=== PATIENT | female | born 1990 | race Caucasian/White ===

== ENCOUNTER 2017-11-16 05:45 | Inpatient (IN) | payer OTHER ==
[2017-11-16 07:46] LABS: Hematocrit 37.2 % (30.3-42.9); Hemoglobin 13.1 gm/dl (10.1-14.3); Mean Corpuscular HGB Conc 35 % (30-34); Mean Corpuscular Hemoglobin 30 pg (28-32); Mean Corpuscular Volume 85 fl (79-97); Platelet Count 201 K/mm3 (140-440); Red Blood Count 4.37 M/mm3 (3.65-5.03); Red Cell Distribution Width 13.4 % (13.2-15.2)
[2017-11-16] MEDS ORDERED: BRETHINE SUB-Q PRN (07:51)
[2017-11-16] MEDS ORDERED: POLYCILLIN/NS 2 GM/100 ML 2 GM/100 ML BAG IV ONE (07:51)
[2017-11-16] MEDS ORDERED: MINERAL OIL PO PRN (07:51)
[2017-11-16] MEDS ORDERED: XYLOCAINE 2% INFILTRATI ONE ×2 (07:51→10:33)
[2017-11-16] MEDS ORDERED: SUBLIMAZE IV PRN (07:51)
[2017-11-16] MEDS ORDERED: BRETHINE IVP PRN (07:51)
--- NOTE | 2017-11-16 07:53 | History and Physical Report ---
History of Present Illness Date of examination: 11/16/17 Date of admission: 11/16/17 Chief complaint: contractions History of present illness: Pt rpesents in active labor EDC Confirmation: 11/19/2017 Gestational Age: 29 6/7 weeks Past History : 4 Term Births: 1 Premature Births: 1 Living Children: 2 Para: 2 Mult. Births: 0 Prev : 0 Prev. attempt? 0 Aborta: 1 Elect. Ab: 0 Spont. Ab: 0 Ectopics: 0 # 1 Delivery date: 08/03/2013 Weeks Gestation: 36 labor: yes Delivery type: Hours of labor: 16 Anesthesia type: epidural Delivery location: [place] Sex: Male weight: 6-7 Name: Georgette # 2 Delivery date: 04/2014 Weeks Gestation: 7 Delivery type: SAB Comments: No D&C # 3 Delivery date: 03/17/2015 Weeks Gestation: 40 Delivery type: Hours of labor: 15 Anesthesia type: epidural Delivery location: [place] Infant Sex: Male weight: 9-6 Name: Vanessaerinnnorm Past Medical History: Negative Past Medical History Past Surgical History: Negative Past Surgical History Family History Summary: Other family member - Has No Family History of Ovarvian Cancer - Entered On: 09/09 Other family member - Has No Family History of Colon Cancer - Entered On: 2017 Other family member - Has No Family History of Breast Cancer - Entered On: 2017 Other family member - Has Family History of Thyroid Disease - Entered On: 2017 Other family member - Has Family History of Hypertension - Entered On: 09/09/2017 Social History: Patient is single Past Medical History Surgery (Non-yield 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 Past Surgical History Uterine Anomaly: negative Social Hx: Patient is single Genetic History Congenital Heart Defect: Mom: no Dad: no Mika Disease: Mom: no Dad: no Thalassemia Mom: no Dad: no Neural Tube Defect Mom: no Dad: no Down's Syndrome Mom: no Dad: no Matt-Sachs Mom: no Dad: no Sickle Cell Disease/Trait Mom: no Dad: no Hemophilia Mom: no Dad: no Muscular Dystrophy Mom: no Dad: no Cystic Fibrosis Mom: no Dad: no [place] Chorea Mom: no Dad: no Mental Retardation Mom: no Dad: no Fragile X Mom: no Dad: no Other Genetic/Chromosomal Disorder Mom: no Dad: no Child w/other defect Mom: no Dad: no Active Medications (reviewed today): FORMULA 27-1 MG ORAL TABLET ( VIT-FE FUMARATE-FA) 1 po q day as directed Current Allergies (reviewed today): No known allergies Past History Past Medical History: no pertinent history, other (see hpi) Past Surgical History: other (see hpi) FIELD SPEC History: other (see hpi) Social history: no significant social history - Obstetrical History Expected Date of Delivery: 11/19/17 Actual Gestation: 39 Week(s) 4 Day(s) : 4 Para: 2 Spontaneous Abortions: 1 Number of Living Children: 2 Medications and Allergies Allergies Allergy/AdvReac Type Severity Reaction Status Date / Time No Known Allergies Allergy Unverified 11/16/17 06:17 Active Meds: Active Medications Lactated Ringer's (Lactated Ringers) 1,000 mls @ 125 mls/hr IV DIRECT TRACEE Oxytocin/Sodium Chloride (Pitocin/Ns 20 Unit/1000ml Drip) 20 units in 1,000 mls @ 0 mls/hr IV DIRECT TRACEE Review of Systems All systems: negative - Vital Signs Vital signs: Vital Signs Pulse BP 96 H 115/70 11/16/17 06:20 11/16/17 06:20 Temp Pulse Resp BP Pulse Ox 87 119/69 11/16/17 07:42 11/16/17 07:42 - Physical Exam Cardiovascular: Normal S1, Normal S2 Lungs: Positive: Clear to auscultation, Normal air movement Abdomen: Positive: normal appearance, soft. Negative: distention, tenderness, guarding Genitourinary (Female): Positive: normal external genitalia, normal perenium. Negative: perineal/vulvar lesions - Obstetrical FHR: category 1 Results Result Diagrams: 11/16/17 07:20 Abnormal lab results 11/16/17 Range/Units 07:20 WBC 13.6 H (4.5-11.0) K/mm3 MCHC 35 H (30-34) % All other labs normal. Assessment and Plan - Patient Problems (1) 39 weeks gestation of Current Visit: Yes Status: Acute (2) Active labor Current Visit: Yes Status: Acute Plan to address problem: -anticipate sve -loading dose of antibx to be given (3) Positive GBS test Current Visit: Yes Status: Acute Plan to address problem: -will initial dose but pt labor is progressing w/o augmentation, so may not get second dose -will follow protocol accordingly (4) Rh negative status during Current Visit: Yes Status: Acute Qualifiers: Trimester: third trimester Qualified Code(s): O09.893 - Supervision of other high risk pregnancies, third trimester; Z67.91 - Unspecified blood type, Rh negative Plan to address problem: -Rhogam pp if indicated
[2017-11-16] MEDS ORDERED: LACTATED RINGERS 1,000 ML IV SCH ×2 (08:00)
[2017-11-16] MEDS ORDERED: PITOCin/NS 30 UNIT/500ML 30 UNITS/500 ML BAG IV SCH ×2 (08:00)
[2017-11-16] MEDS ORDERED: PITOCin/NS 20 UNIT/1000ML DRIP 20 UNITS/1,000 ML BAG IV SCH ×2 (08:00)
[2017-11-16] MEDS ORDERED: NARCAN 2 MG/2 ML IV PRN (08:51)
[2017-11-16] MEDS ORDERED: fentaNYL-BUPIV 2 MCG/ML-0.125% 200 MCG/100 ML BAG EPIDURAL SCH (09:00)
[2017-11-16] MEDS ORDERED: LANSINOH TP PRN (10:58)
[2017-11-16] MEDS ORDERED: DULCOLAX PR PRN (10:58)
[2017-11-16] MEDS ORDERED: MILK OF MAGNESIA PO PRN (10:58)
[2017-11-16] MEDS ORDERED: TYLENOL PO PRN (10:58)
[2017-11-16] MEDS ORDERED: BENADRYL PO PRN (10:58)
[2017-11-16] MEDS ORDERED: TUCKS PAD TP PRN (10:58)
[2017-11-16] MEDS ORDERED: ZOFRAN IV PRN (10:58)
[2017-11-16] MEDS ORDERED: PHENERGAN PR PRN (10:58)
[2017-11-16] MEDS ORDERED: PHENERGAN PO PRN (10:58)
[2017-11-16] MEDS ORDERED: SODIUM CHLORIDE FLUSH SYRINGE 10 ML IV NR (11:00)
--- NOTE | 2017-11-16 11:06 | Procedure Note ---
OB Delivery Note - Delivery Date of Delivery: 11/16/17 Surgeon: SARA WHITTEN Estimated blood loss: 300cc - Vaginal Delivery presentation: vertex Delivery position: OA Intrapartum events: none Delivery induction: none Delivery monitor: external uterine, internal FHT Route of delivery: Delivery placenta: spontaneous (intact) Delivery cord: nuchal cord (times one cord clamped x2 and cut) Episiotomy: none Delivery laceration: 1st degree (left labial), 2nd degree (perineal-repaired in usual fashion with 3-0 vicryl) Delivery repair: vicryl (3-0) Anesthesia: epidural Delivery comments: Delivery as above. Ant shoulder delivered w/o difficulty. Nuchal cord times one noted and clamped x 2 and easily reduced. [facility] taken to [facility] to waiting mother baby nurse. Cord blood collected. Placenta manually delivered w/ o difficulty. Perineal laceration noted and repaired in usual fashion. EBL 300ml. Mother and stable in ldr. - Infant A at 1 minute: 7 at 5 minutes: 9 Infant Gender: Female (8lbs 14oz)
[2017-11-16] MEDS ORDERED: AMPICILLIN/NS 1 GM/50 ML 1 GM/50 ML BAG IV SCH (11:51)
[2017-11-16] MEDS: MOTRIN PO SCH (18:13)
[2017-11-16] MEDS ORDERED: DERMOPLAST TP PRN (19:20)
[2017-11-17] MEDS: MOTRIN PO SCH ×3 (00:31→17:47)
[2017-11-17 00:40] LABS: Hemoglobin 12.4 gm/dl (10.1-14.3)
--- NOTE | 2017-11-17 08:39 | Progress Note ---
Assessment and Plan - Patient Problems (1) Spontaneous vaginal delivery Onset Date: ~11/17/17 Current Visit: Yes Status: Acute Plan to address problem: Pt resting No c/o voiced VSS FF below umb Lochia small Perineum intact H&H stable Doing well s/p P: d/c tomorrow GBS+ incomplete tx due to rapid delivery Subjective - Subjective Date of service: 11/17/17 Principal diagnosis: Day # 1 s/p vag delivery; GBS+ untreated Patient reports: appetite normal, voiding normally, pain well controlled, ambulating normally [place]: doing well Objective - Vital Signs Latest vital signs: Vital Signs Temp Pulse Resp BP BP Pulse Ox 11/17/17 01:31 18 11/17/17 00:31 18 11/17/17 00:06 98.4 F 76 14 110/62 11/16/17 21:05 98.5 F 93 H 16 96/53 98 11/16/17 15:50 98.6 F 100 H 18 104/47 98 11/16/17 13:00 98.7 F 98 H 16 101/65 98 11/16/17 11:58 93 H 102/54 11/16/17 11:53 85 101/55 11/16/17 11:48 82 99/59 11/16/17 11:43 92 H 103/51 11/16/17 11:38 83 107/55 11/16/17 11:33 83 107/54 11/16/17 11:28 76 118/57 11/16/17 11:23 81 111/56 11/16/17 11:18 82 107/53 11/16/17 11:13 85 110/51 11/16/17 11:08 89 115/54 11/16/17 11:03 91 H 121/54 11/16/17 10:58 91 H 122/58 11/16/17 10:53 100 H 119/58 11/16/17 10:48 127/56 11/16/17 10:43 97 H 113/54 11/16/17 10:39 100 H 111/59 11/16/17 10:34 141 H 161/81 11/16/17 10:29 96 H 132/55 94 11/16/17 10:26 105 H 132/60 11/16/17 10:24 111 H 85 11/16/17 10:20 122 H 140/73 11/16/17 10:19 109 H 100 11/16/17 10:18 102 H 78 L 11/16/17 10:14 118 H 118/60 100 11/16/17 10:12 96 H 110/62 11/16/17 10:10 93 H 111/57 11/16/17 10:09 96 H 100 11/16/17 10:08 98 H 112/57 11/16/17 10:06 91 H 105/51 11/16/17 10:04 83 111/54 99 11/16/17 10:02 83 105/55 11/16/17 10:00 86 112/60 11/16/17 09:59 103 H 99 11/16/17 09:58 83 112/59 11/16/17 09:55 139 H 113/65 11/16/17 09:54 97 H 99 11/16/17 09:53 103 H 109/56 11/16/17 09:51 99 H 108/59 11/16/17 09:50 94 H 106/59 11/16/17 09:49 90 100 11/16/17 09:48 103 H 110/57 11/16/17 09:46 102 H 99/51 11/16/17 09:44 86 103/53 98 11/16/17 09:42 101 H 107/56 11/16/17 09:40 83 108/57 11/16/17 09:39 97 H 100 11/16/17 09:38 98 H 109/56 11/16/17 09:35 84 106/56 11/16/17 09:34 98 H 104/58 99 11/16/17 09:32 96 H 107/55 11/16/17 09:30 101 H 110/57 11/16/17 09:29 94 H 100 11/16/17 09:28 109 H 108/51 11/16/17 09:26 83 110/56 11/16/17 09:24 93 H 104/53 97 11/16/17 09:22 85 108/55 11/16/17 09:20 92 H 105/58 11/16/17 09:19 114 H 99 11/16/17 09:16 102 H 111/55 11/16/17 09:14 100 H 123/64 99 11/16/17 09:09 97 H 134/67 98 11/16/17 09:04 101 H 98 11/16/17 08:59 97 H 98 11/16/17 08:58 100 H 130/60 92 11/16/17 08:44 84 121/72 Intake and Output 11/16/17 11/17/17 11/17/17 22:59 06:59 14:59 Intake Total 600 240 Output Total 900 Balance -300 240 Intake: Oral 360 Intake, Free Water 240 240 Output: Urine 900 Void 900 Other: Total, Intake Amount 360 Total, Output Amount 900 # Voids Void 1 1 - Exam Breasts: Present: normal Cardiovascular: Present: Regular rate Lungs: Present: Normal air movement Abdomen: Present: normal appearance, soft Uterus: Present: normal, firm, fundal height below umbilicus Extremities: Present: normal Deep Tendon Reflex Grade: Normal +2 Incision: Present: normal, dry, intact
[2017-11-17] MEDS ORDERED: PRENATAL VITAMIN PO SCH (10:00)
[2017-11-17] MEDS ORDERED: BOOSTRIX IM ONE (10:59)
[2017-11-18] MEDS: MOTRIN PO SCH ×3 (00:13→11:10)
--- NOTE | 2017-11-18 07:24 | Discharge Summary ---
Providers - Providers Date of Admission: 11/16/17 05:46 Date of discharge: 11/18/17 (pt desires d/c ) Attending physician: SARA WHITTEN Primary care physician: SARA WHITTEN Hospitalization Reason for admission: active labor Delivery: Episiotomy: none Laceration: none Incision: normal Other procedures: none complications: none Discharge diagnosis: IUP at term delivered Sax[place] baby: female Hospital course: uncomplicated vaginal delivery pt asking to be d/c VSS FF below umb Lochia small perineum intact Stable H&H Doing well s/p vag delivery P: d/c today with instructions RTO 4 weeks. Flag to scheduling to schedule tubal as per pt request. Condition at discharge: Good Disposition: DC-01 TO HOME OR SELFCARE - Discharge Diagnoses (1) Spontaneous vaginal delivery Status: Acute Comment: RTO 4 weeks PP care Plan - Provider Discharge Summary Activity: routine, no sex for 6 weeks, no heavy lifting 4 weeks, no strenuous exercise Additional instructions: [] Smoking cessation referral if applicable(refer to patient education folder for contact #) [] Refer to [facility] Booklet Call your doctor immediately for: * Fever > 100.5 * Heavy vaginal bleeding ( >1 pad per hour) * Severe persistent headache * Shortness of breath * Reddened, hot, painful area to leg or breast * Drainage or odor from incision. * Keep incision clean and dry at all times and follow doctor's instructions regarding bathing/showering - Follow up plan Follow up: SARA WHITTEN MD [Primary Care Provider] - 12/17/17 (Congratulations! Please call [phone] to schedule your visit in 4 weeks. Take medication as prescribed. Call with concerns.)
[2017-11-18 09:55] VITALS: BP 110/59
== END 2017-11-18 12:10 | disposition home or self-care (01) | DRG 775 ==
LOC: TRG 05:45 → LD 05:46 → TRG 05:55 → OB 12:36
PROVIDERS: ADMIT Obstetrics & Gynecology; ATTEND Obstetrics & Gynecology
PROC: 10E0XZZ Delivery of Products of Conception, External Approach (ICD-10-PCS; principal; 2017-11-16)
PROC: 0KQM0ZZ Repair Perineum Muscle, Open Approach (ICD-10-PCS; 2017-11-16)
PROC: 3E0R3BZ Introduction of Anesthetic Agent into Spinal Canal, Percutaneous Approach (ICD-10-PCS; 2017-11-16)
PROC: 00HU33Z Insertion of Infusion Device into Spinal Canal, Percutaneous Approach (ICD-10-PCS; 2017-11-16)
PROC: 30233S1 Transfusion of Nonautologous Globulin into Peripheral Vein, Percutaneous Approach (ICD-10-PCS; 2017-11-17)
DX: O99.824 Streptococcus B carrier state complicating childbirth (principal); O70.1 Second degree perineal laceration during delivery; O69.1XX0 Labor and delivery complicated by cord around neck, with compression, not applicable or unspecified; Z3A.39 39 weeks gestation of pregnancy; Z37.0 Single live birth; Z82.49 Family history of ischemic heart disease and other diseases of the circulatory system; O09.893 Supervision of other high risk pregnancies, third trimester
CPT/HCPCS: 36415; 85014; 85018; 85027; 85461; 86592; 86850; 86870; 86900; 86901; A6250; J0290; J2590; J2790; J7120

== ENCOUNTER 2018-01-06 09:00 | Day surgery (SDC) | payer OTHER ==
--- NOTE | 2018-01-05 19:25 | History and Physical Report ---
History of Present Illness Date of examination: 01/01/18 Chief complaint: Sterilization History of present illness: Past History : 4 Term Births: 2 Premature Births: 1 Living Children: 3 Para: 3 Mult. Births: 0 Prev : 0 Prev. attempt? 0 Aborta: 1 Elect. Ab: 0 Spont. Ab: 1 Ectopics: 0 # 1 Delivery date: 08/03/2013 Weeks Gestation: 36 labor: yes Delivery type: Hours of labor: 16 Anesthesia type: epidural Delivery location: [place] Infant Sex: Male weight: 6-7 Name: Georgette # 2 Delivery date: 04/2014 Weeks Gestation: 7 Delivery type: SAB Comments: No D&C # 3 Delivery date: 03/17/2015 Weeks Gestation: 40 Delivery type: Hours of labor: 15 Anesthesia type: epidural Delivery location: [place] Infant Sex: Male weight: 9-6 Name: Alf # 4 Delivery date: 11/16/2017 Weeks Gestation: 39.4 Delivery type: Vaginal Anesthesia type: epidural Delivery location: [facility] Sex: female weight: 8.88 Comments: none FISH PROCESSOR History Operations: Negative Past Surgical History Abnormal PAP: negative Uterine Anomaly: negative Infection History HIV Risk Eval: no Hx of STD: None Active Medications (reviewed today): HYDROCORTISONE 1 % RECTAL CREAM (HYDROCORTISONE) Apply to affected area 2 to 4 times daily. IBUPROFEN 600 MG ORAL TABLET (IBUPROFEN) 1 po q6hrs as directed prn OXYCODONE-ACETAMINOPHEN 5-325 MG ORAL TABLET (OXYCODONE-ACETAMINOPHEN) 1-2po q6h FORMULA 27-1 MG ORAL TABLET ( VIT-FE FUMARATE-FA) 1 po q day as directed Current Allergies (reviewed today): No known allergies Past Medical History: Reviewed history from 09/09/2017 and no changes required: Negative Past Medical History Past Surgical History: Reviewed history from 09/09/2017 and no changes required: Negative Past Surgical History Family History Summary: Other family member - Has No Family History of Uterine Cancer - Entered On: 01/05 Other family member - Has No Family History of Stomach Cancer - Entered On: 01/05 Other family member - Has No Family History of Spontaneous DVT-PE - Entered On: 01/05/2018 Other family member - Has No Family History of Small Bowel Cancer - Entered On: 01/05/2018 Other family member - Has No Family History of Pancreatic Cancer - Entered On: 01/05/2018 Other family member - Has No Family History of Kidney/Urinary Tract Cancer - Entered On: 01/05/2018 Other family member - Has No Family History of Brain Cancer - Entered On: 2017 Other family member - Has No Family History of Biliary Tract Cancer - Entered On : 01/05/2018 Social History: Reviewed history from 09/09/2017 and no changes required: Patient is single Smoking History: Patient has never smoked. Risk Factors: Smoked Tobacco Use: Never smoker PAP Smear History: Date of Last PAP Smear: 01/01/2018 Results: 04/2017 Previous Tobacco Use: Signed On - 12/15/2017 Smoked Tobacco Use: Never smoker Smokeless Tobacco Use: Never Counseled to quit/cut down: yes Drug use: no HIV high-risk behavior: no Previous Alcohol Use: Signed On - 12/15/2017 Alcohol use: no Exercise: no Seatbelt use: 100 % Dietary Counseling: pn yes PAP Smear History: Date of Last PAP Smear: 01/01/2018 Results: 04/2017 Review of Systems GI hemorrhoids Physical Exam Appearance: well developed, well nourished, no acute distress Other Exams Lungs: no rales, rhonchi, or wheezes Heart: S1, S2, no murmur, rub, or gallop Impression & Recommendations: Problem # 1: Sterilization counseling (ICD-V25.09) (MKJ70-Q86.09) Orders: Ofc Vst Est [id number] (CPT-[id number]) Risks of regret emphasized. Permanent and irreversible condition explained to patient. Pt verbalized understanding. Consent reviewed and signed. Pre- operative instructions sheets given. The risks and alternatives to this surgery were reviewed with the patient. Infection precautions reviewed, pt to call for any signs or symptoms of infection. Patient given ample opportunity to have all her questions answered before signing informed consent. Patient informed of possible bleeding. 1%failure rate emphasized She desires salpingectomy for sterilization. Consent reviewed and signed . Possible laparoscopy or laparotomy explained to patient. The risks and alternatives for this surgery were reviewed with the patient. She was informed of possible bleeding, infection, injury to bowel, bladder, ureters or other adjacent organs. The patient was instructed/informed the following: The normal length of hospital stay for this procedure. Nothing to eat or drink after midnight the evening prior to surgery. Clear liquids the day before surgery. Fleets enema the day prior to surgery. Pre-op instruction sheets given. Wound care instructions given. Infection precautions reviewed, patient to call for any signs or symptoms of infection. The usual discomforts associated with this procedure were detailed. Proper use of pain medicines was reviewed. Patient was given ample opportunity to have all her questions answered before signing informed consent. . Medications Added to Medication List This Visit: 1) Hydrocortisone 1 % Rectal Cream (Hydrocortisone) .... Apply to affected area 2 to 4 times daily. 2) Ibuprofen 600 Mg Oral Tablet (Ibuprofen) .... 1 po q6hrs as directed prn 3) Oxycodone-acetaminophen 5-325 Mg Oral Tablet (Oxycodone-acetaminophen) .... 1-2po q6h Prescriptions: HYDROCORTISONE 1 % RECTAL CREAM (HYDROCORTISONE) Apply to affected area 2 to 4 times daily. #30[Gram] x 0 Entered and Authorized by: Conchis Shaikh MD Method used: Electronically to [facility]* (retail) [address] [place] [address] RxID: [id number] IBUPROFEN 600 MG ORAL TABLET (IBUPROFEN) 1 po q6hrs as directed prn #30 x 1 Entered and Authorized by: Conchis Shaikh MD Method used: Print then Give to Patient RxID: [id number] OXYCODONE-ACETAMINOPHEN 5-325 MG ORAL TABLET (OXYCODONE-ACETAMINOPHEN) 1-2po q6h #10 Tablet x 0 Entered and Authorized by: Conchis Shaikh MD Method used: Print then Give to Patient RxID: [id number] Medications and Allergies Allergies Allergy/AdvReac Type Severity Reaction Status Date / Time No Known Allergies Allergy Unverified 01/05/18 09:15 Home Medications Medication Instructions Recorded Confirmed Last Taken Type No Known Home Medications [No 01/05/18 01/05/18 Unknown History Reported Home Medications] Active Meds: Active Medications Cefazolin Sodium (Ancef/Sterile Water 2 Gm/20 Ml) 2 gm in 20 mls @ 80 mls/hr IV PREOP NR; Protocol Assessment and Plan - Patient Problems (1) Sterilization Status: Acute
[~2018-01-06 09:00] MED LIST: ANCEF/STERILE WATER 2 GM/20 ML 2 GM/20 ML SYRINGE IV NR; MARCAINE 0.5% INFILTRATI ONE
[2018-01-06] MEDS ORDERED: NACL BACTERIOSTATIC INFILTRATI ONE (09:37)
[2018-01-06] MEDS ORDERED: LACTATED RINGERS 1,000 ML IV SCH (10:00)
[2018-01-06] MEDS ORDERED: LACTATED RINGERS 1,000 ML ONE (10:03)
[2018-01-06] MEDS ORDERED: ZEMURON IV ONE (10:27)
[2018-01-06] MEDS ORDERED: XYLOCAINE MPF 2% ONE (10:27)
[2018-01-06] MEDS ORDERED: ZOFRAN ONE (10:27)
[2018-01-06] MEDS ORDERED: DIPRIVAN 10 MG/ML IV ONE (10:27)
[2018-01-06] MEDS ORDERED: SUBLIMAZE ONE (10:27)
[2018-01-06] MEDS ORDERED: REGLAN ONE (10:27)
[2018-01-06] MEDS ORDERED: BLOXIVERZ ONE (11:08)
[2018-01-06] MEDS ORDERED: ROBINUL ONE (11:08)
--- NOTE | 2018-01-06 11:24 | Discharge Summary ---
Providers - Providers Date of discharge: 01/06/18 Attending physician: COLT YOUNG Primary care physician: WOOD PREPARATION SUPERVISOR Hospitalization Condition: Good Procedures: Laparoscopic salpingectomy for sterilization Hospital course: Normal Disposition: DC-01 TO HOME OR SELFCARE - Discharge Diagnoses (1) Sterilization Status: Acute Core Measure Documentation - Palliative Care Palliative Care/ Comfort Measures: Not Applicable - Core Measures Any of the following diagnoses?: none Exam - Constitutional Vitals: Temp Pulse Resp BP Pulse Ox 97.9 F 59 L 16 98/53 99 01/06/18 09:45 01/06/18 09:45 01/06/18 09:45 01/06/18 09:45 01/06/18 09:45 General appearance: Present: no acute distress - Respiratory Respiratory effort: normal - Cardiovascular Rhythm: regular - Extremities Extremities: no ischemia, No edema - Abdominal General gastrointestinal: Present: soft Female genitourinary: Present: normal Plan Activity: other (no sex) Weight Bearing Status: Full Weight Bearing Diet: regular Wound: open to air, keep clean and dry Special Instructions: no heavy lifting (greater than 25 pounds 1 week) Follow up with: COLT YOUNG MD [Staff Physician] - (As scheduled)
--- NOTE | 2018-01-06 11:27 | Operative Report ---
Operative Report Operative Report: Date: 01/06/2015 Preoperative diagnosis: Desire sterilization Postoperative diagnosis: Desire sterilization Procedure: Laparoscopic bilateral salpingectomy for sterilization Surgeon: Conchis Shaikh MD [employer] Police Officer: [] Anesthesiologist: Dr. Tarango Anesthesia: Gen. endotracheal anesthesia EBL: Minimal Findings: Grossly normal uterus tubes and ovaries Procedure: After risks, benefits, consequences, alternatives and complications were discussed patient voiced her understanding and desire to proceed, she was taken to the OR and placed in the supine position. After general anesthesia was induced, she was placed in the dorsal lithotomy position. Exam under anesthesia was unremarkable. She was then prepped and draped in the usual sterile fashion. After a timeout was performed, the bladder was drained for approximately 50 mL of clear yellow urine with a red rubber catheter. A operative speculum was introduced into the vagina, and anterior lip cervix was grasped with a single-toothed tenaculum. The uterus was sounded to 8 cm. The cervix was progressively dilated to allow the Sargis uterine manipulator. The tenaculum and speculum were removed. Sterile gloves were placed and attention was turned to the abdomen. An infraumbilical incision was made and a 5 mm Optiview trocar with scope and camera attached were placed through the incision. The abdomen was entered under direct visualization. The abdomen was then insufflated. No bowel, bladder, ureteral, or major vessel injury was noted. She was then placed in steep Trendelenburg position. The above findings were noted. An additional 5 mm trocar was placed through a suprapubic midline incision made approximately 2 cm superior to the symphysis pubis. A 5 mm trocar was introduced under direct visualization. No bowel, bladder or ureteral or major vascular injury was noted. The uterus was elevated, using the 5 mm [place] LigaSure device, bilateral salpingectomy was performed. Each tube was removed through the suprapubic trocar. Attention was turned to the adnexa where hemostasis was noted. Again no bowel, bladder or ureteral or major vascular injury was noted. The gas was released from the abdomen under direct visualization. All areas appeared to be hemostatic again no obvious evidence of bowel, bladder, ureteral or vascular injury. At this point the procedure was ended. The remaining gas in the abdomen was released. Patient was taken out of Trendelenburg position. The incisions were reapproximated using 4-0 Vicryl in a subcuticular manner. The incisions were then infused with half percent Marcaine without epinephrine. Then attention was turned to the vagina where the uterine manipulator was removed. No bleeding was noted from the vagina. The Sue catheter was then removed, clear yellow urine was noted to drain into the Sue tubing as well as into the bag. Counts were correct 3 patient tolerated procedure well was taken to recovery in stable condition
[2018-01-06] MEDS ORDERED: DILAUDID IV PRN (11:34)
[2018-01-06] MEDS ORDERED: ZOFRAN IV PRN (11:34)
--- NOTE | 2018-01-06 11:34 | Anesthesia Day of Surgery ---
Anesthesia Day of Surgery - Day of Surgery Patient Examined: Yes Patient H&P Reviewed: Yes Patient is NPO: Yes
--- NOTE | 2018-01-06 11:34 | Anesthesia Consultation ---
Anesthesia Consult and Med Hx Date of service: 01/06/18 - Airway Anesthetic Teeth Evaluation: Good ROM Head & Neck: Adequate Mental/Hyoid Distance: Adequate Mallampati Class: Class I Intubation Access Assessment: Probably Good - Pulmonary Exam CTA: Yes - Cardiac Exam Cardiac Exam: RRR - Pre-Operative Health Status ASA Pre-Surgery Classification: ASA1 Proposed Anesthetic Plan: General - Pulmonary Hx Asthma: No COPD: No Hx Pneumonia: No - Cardiovascular System Hx Hypertension: No - Central Nervous System Hx Seizures: No Hx Psychiatric Problems: No - Endocrine Hx Renal Disease: No Hx End Stage Renal Disease: No Hx Hypothyroidism: No Hx Hyperthyroidism: No - Hematic Hx Anemia: No Hx Sickle Cell Disease: No - Other Systems Hx Alcohol Use: No Hx Cancer: No
[2018-01-06 12:29] VITALS: BP 100/59
== END 2018-01-06 13:05 | disposition home or self-care (01) ==
LOC: OR 09:00
PROVIDERS: ATTEND Obstetrics & Gynecology
DX: Z30.2 Encounter for sterilization (principal); Z79.899 Other long term (current) drug therapy; Z98.890 Other specified postprocedural states
CPT/HCPCS: 58661; 81025; 86850; 86870; 86900; 86901; 88302; J0690; J2405; J2704; J2710; J2765; J3010; J7120